=== PATIENT | female | born 1990 | race African-American/Black ===

== ENCOUNTER 2018-02-05 11:28 | Emergency (ER) | payer SELFPAY ==
[~2018-02-05] VITALS: Ht 165.1 cm; Wt 53.6 kg
[~2018-02-05 11:28] MED LIST: BACTRIM DS 8001 TAB PO; FLEXERIL 1010 MG/TAB PO; NO HOME MEDICATIONS; NORCO 325 MG-51 TAB PO; OMNICEF 300MG300 MG PO; PREDNISONE20 MG PO; ULTRAM 50MG TAB50 MG PO
[2018-02-05 11:38] VITALS: BP 124/90; PULSE 78; TEMP 98.5
[2018-02-05 12:29] LABS: BASO % 0.6 % (0.0-2.0); EOS # 0.1 (0.0-0.7); EOS % 1.1 % (0-4.0); HEMOGLOBIN 11.3 g/dl (12.5-16.0); LYMPH # 1.2 (1.2-3.4); MEAN CELL VOLUME 96 fl (80.0-100.0); MEAN CORPUSCULAR HEMOGLOBIN 33 pg (27.0-31.0); MEAN CORPUSCULAR HGB CONC 34 g/dl (33.0-37.0); MONO # 0.3 (0.1-0.6); MONO % 7.1 % (1.7-9.3); PLATELET COUNT 156 K/mm3 (130-400); RED BLOOD COUNT 3.45 M/mm3 (4.10-5.30); REDCELL DISTRIBUTION WIDTH-CV 11.7 % (11.5-14.5)
[2018-02-05 12:32] LABS: HEMATOCRIT 33.1 % (37.0-47.0)
== END 2018-02-05 13:27 | disposition home or self-care (01) ==
LOC: COL.ER 11:28
PROVIDERS: Physician Assistant
DX: D50.9 Iron deficiency anemia, unspecified (principal); Z98.890 Other specified postprocedural states